=== PATIENT | male | born 1995 | race Caucasian/White ===

== ENCOUNTER 2016-08-29 14:28 | Emergency (ER) | payer OTHER ==
[~2016-08-29] VITALS: Ht 165.1 cm; Wt 61.2 kg
[2016-08-29 14:35] VITALS: BP 126/78
--- NOTE | 2016-08-29 15:28 | ED PSYCHIATRIC COMPLAINT ---
History of Present Illness General Chief Complaint: Psychiatric Related Complaint Stated Complaint: BIBA PSY EVAL Source: pt left before eval Exam Limitations: pt left before eval Vital Signs & Intake/Output Vital Signs & Intake/Output Vital Signs Date Time Temp Pulse Resp B/P B/P Pulse O2 O2 Flow FiO2 Mean Ox Delivery Rate 08/29 1435 97.5 63 16 126/78 99 Room Air Allergies Coded Allergies: prednisone (CAUSES SEROTONIN TO GET IMBALANCED 08/29/16) atomoxetine (From [facility]) (KNOCKS OFF MY SEROTONIN 08/29/16) Reconcile Medications Biotin (Unknown Strength) TAB.CHEW (Unknown Dose) PO DAILY SUPPLEMENT ( Reported) Bupropion HCl (Bupropion XL) 150 MG TAB.ER.24H 1 TAB PO QAM MENTAL HEALTH ( Reported) Cholecalciferol (Vitamin D3) (Vitamin D) (Unknown Strength) TABLET (Unknown Dose) PO DAILY SUPPLEMENT (Reported) Lorazepam 0.5 MG TABLET 1 TAB PO PRN ANXIETY (Reported) Triage Note: PT BROUGHT IN BY AMBULANCE AFTER ARGUING WITH FATHER. POLICE WHERE CALLED. PT DENIES SI AND HI. STATES HE FEELS SAFE AT HOME. "I GUESS TODAY WAS NOT A GOOD DAY TO ARGUE WITH HIM" CALM AND COOPERATIVE AT TRIAGE Triage Nurses Notes Reviewed? yes HPI: He left the emergency department before being evaluated by provider. He was told to stay multiple times by nurses Past History Travel History Traveled to [place] past 21 day No Medical History Any Pertinent Medical History? see below for history Respiratory: asthma Psychiatric: anxiety, ADHD Surgical History Surgical History: unobtainable Psychosocial History What is your primary language Czech Tobacco Use: Never used ETOH Use: occasional use Illicit Drug Use: marijuana Family History Hx Contributory? No Review of Systems Review of Systems Constitutional: Reports: no symptoms. Physical Exam Physical Exam General Appearance: pt not examied, ed walkout Neurological/Psychiatric: ed walkout SAD PERSONS Done? unobtained due to conditi Progress Differential Diagnosis: ed walk out Plan of Care: pt left before eval Departure Departure Disposition: ER WALKOUT Condition: Stable Referrals: DLEICIA RODRIGUEZ MD (PCP/Family) Departure Forms: Customer Survey General Discharge Information
[2016-08-29] MEDS ORDERED: VITAMIN D2000 UNI1 PO (15:34)
[2016-08-29] MEDS ORDERED: LORAZEPAM0.5 M1 PO (15:34)
[2016-08-29] MEDS ORDERED: BUPROPION XL150 MG PO (15:34)
[2016-08-29] MEDS ORDERED: BIOTIN1000 MC1 PO (15:34)
== END 2016-08-29 16:11 | disposition admitted as inpatient to this hospital (09) ==
LOC: ERH 14:28
DX: Z00.8 Encounter for other general examination (principal)